=== PATIENT | female | born 1970 | race Caucasian/White ===

== ENCOUNTER 2023-01-27 14:54 | Emergency (ER) | payer SELFPAY ==
[2023-01-27] VITALS (27 sets, daily range): BP systolic 88–228; BP diastolic 69–180
[~2023-01-27] VITALS: Ht 175.3 cm; Wt 77.0 kg
[~2023-01-27 14:54] MED LIST: PROVERA5 MG PO; VOLTAREN1%GEL TOP
[2023-01-27 15:17] LABS: BASO% 0.4 % (0-3); EOS% 0.9 % (0-8); HEMATOCRIT 45.3 % (37.0-47.0); HEMOGLOBIN 15.5 g/dl (12.0-16.0); IMMATURE GRANULOCYTES 0.8 % (0.0-5.0); LYMPH% 41.6 % (15-41); MEAN CELL VOLUME 106.8 fL CALC (80.0-100.0); MEAN CORPUSCULAR HGB 36.6 pG CALC (26.0-32.0); MEAN CORPUSCULAR HGB CONC 34.2 g/dL CAL (32.0-36.0); MONO% 5.2 % (2-13); NEUT# 5.03 thou/uL (2.00-7.15); NEUT% 51.1 % (42-76); RED BLOOD COUNT 4.24 mill/uL (4.20-5.60); RED CELL DISTRI WIDTH 12.3 % (11.5-15.5)
[2023-01-27 15:32] LABS: ALBUMIN 4.3 g/dL (3.2-5.0); ALKALINE PHOSPHATASE 80 u/l (38-126); ANION GAP 19 (6-22 (CALC)); BILIRUBIN, TOTAL 0.8 mg/dL (0.02-1.3); BUN 17 mg/dL (7-17); BUN/CREATININE RATIO 15 (12-20 (CALC)); CARBON DIOXIDE 17 mmol/l (22-30); CHLORIDE 104 mmol/l (95-108); CREATININE 1.1 mg/dL (0.5-1.0); GFR FOR AFR.AMER. > 60 ML/MIN (>=60 (CALC)); GFR OTHER RACES 52 ML/MIN (>=60 (CALC)); SGOT/AST 164 u/l (14-36); SODIUM 137 mmol/l (137-146)
[2023-01-27 15:33] LABS: POTASSIUM 3.3 mmol/l (3.5-5.1)
== END 2023-01-27 17:17 | disposition short-term general hospital (02) | DRG 280 ==
LOC: ED 14:54 → EDBD 14:54 → ED 15:29
PROVIDERS: Family Medicine
PROC: 0T9B70Z Drainage of Bladder with Drainage Device, Via Natural or Artificial Opening (ICD-10-PCS; principal; 2023-01-27)
PROC: 05HM33Z Insertion of Infusion Device into Right Internal Jugular Vein, Percutaneous Approach (ICD-10-PCS; 2023-01-27)
PROC: 0BH17EZ Insertion of Endotracheal Airway into Trachea, Via Natural or Artificial Opening (ICD-10-PCS; 2023-01-27)
PROC: 5A1935Z Respiratory Ventilation, Less than 24 Consecutive Hours (ICD-10-PCS; 2023-01-27)
DX: I21.4 Non-ST elevation (NSTEMI) myocardial infarction (principal); I46.2 Cardiac arrest due to underlying cardiac condition; I47.20 Ventricular tachycardia, unspecified; F17.200 Nicotine dependence, unspecified, uncomplicated
CPT/HCPCS: J0282; J3475; Q9967

== ENCOUNTER 2023-05-23 12:22 | Emergency (ER) | payer SELFPAY ==
[2023-05-23] VITALS (15 sets, daily range): BP systolic 134–185; BP diastolic 55–98
[~2023-05-23] VITALS: Ht 175.3 cm; Wt 68.0 kg
[2023-05-23 12:48] LABS: BASO% 0.4 % (0-3); EOS% 2.1 % (0-8); HEMATOCRIT 43.5 % (37.0-47.0); HEMOGLOBIN 14.6 g/dl (12.0-16.0); LYMPH% 31.2 % (15-41); MEAN CELL VOLUME 103.6 fL CALC (80.0-100.0); MEAN CORPUSCULAR HGB 34.8 pG CALC (26.0-32.0); MEAN CORPUSCULAR HGB CONC 33.6 g/dL CAL (32.0-36.0); MONO% 7.2 % (2-13); NEUT# 3.05 thou/uL (2.00-7.15); NEUT% 59.1 % (42-76); RED BLOOD COUNT 4.2 mill/uL (4.20-5.60); RED CELL DISTRI WIDTH 13.7 % (11.5-15.5)
[2023-05-23 13:34] LABS: ALBUMIN 4.3 g/dL (3.2-5.0); ALKALINE PHOSPHATASE 68 u/l (38-126); BILIRUBIN, TOTAL 0.7 mg/dL (0.02-1.3); BUN 19 mg/dL (7-17); BUN/CREATININE RATIO 20 (12-20 (CALC)); CHLORIDE 106 mmol/l (95-108); GFR FOR AFR.AMER. > 60 ML/MIN (>=60 (CALC)); GFR OTHER RACES 58 ML/MIN (>=60 (CALC)); POTASSIUM 3.9 mmol/l (3.5-5.1); SODIUM 137 mmol/l (137-146); TOTAL PROTEIN 7.1 g/dL (6.3-8.2)
[2023-05-23 13:35] LABS: ANION GAP 12 (6-22 (CALC)); CARBON DIOXIDE 23 mmol/l (22-30); SGOT/AST 37 u/l (14-36)
[2023-05-23] MEDS ORDERED: COZAAR100 MG PO (14:49)
[2023-05-23] MEDS ORDERED: ASPIRINCHW 81MG PO (14:50)
[2023-05-23] MEDS ORDERED: LOPRESSOR 550 MG/TAB PO (14:50)
[2023-05-23] MEDS ORDERED: PLAVIX75 MG PO (14:51)
[2023-05-23] MEDS ORDERED: ATORVASTATIN CA10 MG PO (14:51)
[2023-05-23] MEDS ORDERED: ISOSORBIDE MONO30 MG PO (16:37)
== END 2023-05-23 17:01 | disposition home or self-care (01) | DRG 313 ==
LOC: ED 12:22
PROVIDERS: Family Medicine
DX: R07.9 Chest pain, unspecified (principal); I10 Essential (primary) hypertension; F17.200 Nicotine dependence, unspecified, uncomplicated